=== PATIENT | female | born 1985 | race Two or more races ===

== ENCOUNTER 2019-07-04 15:05 | Emergency (ER) | payer SELFPAY ==
[~2019-07-04] VITALS: Ht 162.6 cm; Wt 69.1 kg
[2019-07-04 15:19] VITALS: Ht 162.6 cm; Wt 69.1 kg
[2019-07-04] MEDS ORDERED: OMEPRAZOLE20 M1 PO (15:21)
[2019-07-04 15:47] LABS: BASOPHILS 0.3 % (0-2); EOSINOPHILS 0.7 % (0-7); HEMATOCRIT 39.1 % (36.0-48.0); HEMOGLOBIN 13.2 g/dL (12-16); IMMATURE GRANULOCYTES 0.1 % (0-5); LYMPHOCYTES 34.4 % (15-50); MCH 30.4 pg (26.0-34.0); MCHC 33.8 g/dL (31.0-37.0); MCV 90.1 fL (80.0-100.0); MEAN PLATELET VOLUME 9.1 fL (7.4-10.4); NEUTROPHILS 56.5 % (40-80); PLATELET COUNT 394 10x3/uL (130-400); RBC 4.34 10x6/uL (4.00-5.40); RDW 12.8 % (11.5-14.5); WBC 6.9 10x3/uL (4.8-10.8)
[2019-07-04 15:49] LABS: APPEARANCE SL CLDY (CLEAR); COLOR DK YELLOW (YELLOW); SPECIFIC GRAVITY 1.015 (1.005-1.020)
[2019-07-04 15:50] LABS: BILIRUBIN 3+ (NEGATIVE); GLUCOSE NEGATIVE (NEGATIVE); KETONE NEGATIVE (NEGATIVE); NITRITE NEGATIVE (NEGATIVE); PROTEIN 1+ mg/dL (NEGATIVE)
[2019-07-04 15:51] LABS: EPITHELIAL CELLS 0-5 /hpf (0-5); RED CELLS - URINE 0-5 /hpf (0-5)
[2019-07-04 15:52] LABS: BACTERIA FEW /hpf (NEGATIVE)
[2019-07-04 16:02] LABS: ALBUMIN 4.1 g/dL (3.4-5.0); ALKALINE PHOSPHATASE 165 U/L (46-116); ALT (SGPT) 656 U/L (10-68); CALC OSMOLALITY 276 mosm/kg (275-300); CARBON DIOXIDE 25.8 mmol/L (21.0-32.0); CHLORIDE - SERUM 104 mmol/L (98-107); CREATININE - SERUM 0.8 mg/dL (0.6-1.3); GLUCOSE 116 mg/dL (74-106); POTASSIUM - SERUM 3.9 mmol/L (3.5-5.1); SODIUM 140 mmol/L (136-145); UREA NITROGEN 5 mg/dL (7-18); eGFR NON AFRICAN AMERICAN 89 mL/min (90-120)
[2019-07-04 16:05] LABS: AMYLASE - SERUM 32 U/L (25-115); BILIRUBIN - DIRECT 1.84 mg/dL (0.00-0.30); BILIRUBIN - INDIRECT 0.66 mg/dL (0.00-1.00); LIPASE 180 U/L (73-393); TROPONIN-I < 0.017 ng/mL (0.000-0.060)
[2019-07-04 20:35] VITALS: BP 113/69
[2019-07-06 08:11] LABS: HEPATITIS C ANTIBODY 0.1 S/CO RAT (0.0-0.9)
== END 2019-07-04 20:35 | disposition other institution (70) ==
LOC: D.ER 15:05
PROVIDERS: Family Medicine
DX: R94.5 Abnormal results of liver function studies (principal); R10.11 Right upper quadrant pain